=== PATIENT | male | born 1985 | race Two or more races ===

== ENCOUNTER 2021-07-02 18:08 | Emergency (ER) | payer OTHER ==
[~2021-07-02] VITALS: Ht 180.3 cm; Wt 111.1 kg
[2021-07-02] MEDS ORDERED: TUSNEL LIQUID178 ML PO (21:28)
[2021-07-02] MEDS ORDERED: CLARITIN10 MG PO (21:28)
== END 2021-07-02 21:54 | disposition home or self-care (01) ==
LOC: ER 18:08
DX: B34.9 Viral infection, unspecified (principal); Z03.818 Encounter for observation for suspected exposure to other biological agents ruled out

== ENCOUNTER 2024-06-07 09:11 | Emergency (ER) | payer OTHER ==
[~2024-06-07] VITALS: Ht 177.8 cm; Wt 111.1 kg
[~2024-06-07 09:11] MED LIST: CLARITIN10 MG PO; TUSNEL LIQUID178 ML PO
[2024-06-07 09:21] VITALS: O2SAT 96
[2024-06-07] MEDS ORDERED: KETOROLAC TROMETHAMINE 30 MG VIAL IM STA (09:31)
[2024-06-07 09:55] VITALS: BP 129/88
[2024-06-09] MEDS ORDERED: NORFLEX100MG PO (10:45)
== END 2024-06-07 09:56 | disposition home or self-care (01) ==
LOC: ER 09:12
DX: M25.511 Pain in right shoulder (principal)

== ENCOUNTER 2024-06-07 10:06 | Outpatient (CLI) | payer OTHER | END 2024-06-07 10:13 | disposition home or self-care (01) | LOC: SONOGRAMA 10:06 | DX: M25.511 Pain in right shoulder (principal) ==